=== PATIENT | male | born 1960 | race African-American/Black ===

== ENCOUNTER 2021-02-07 11:00 | Outpatient (RCR) | payer MEDICARE, SELFPAY ==
--- NOTE | 2021-01-14 15:11 | PTOPEVAL ---
PHYSICAL THERAPY EVALUATION AND PLAN OF CARE Thank you for referring William Chun to [facility].? The patient is scheduled to be seen for therapy? 2x/week for weeks. Please review, sign, date and return this plan of care SELAM. I agree with and certify that the following plan of care is medically necessary. 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 He is wearing a obey sling and hand is fisted and elbow bent to 90deg. He only wears the sling when he leaves the house (1-2x/wk). States he has full sensation of his arm including hot/cold and sharp/dull. Right arm was dominate prior to the CVA. States that he has had no rehab and is walking independently Pain Assessment Timing of Pain Assessment Timing of Pain Assessment Assessment Self Report Self Report Pain Level 0 Pain Score Pain Score 0: Self Report Upper Extremity Range of Motion Scapular/ Shoulder Range of Motion Right Shoulder Flexion - Active 30 Shoulder Abduction - Active 43 Scapular/Shoulder Range of Motion shoulder active flexion in Comments supine: 95deg Elbow/Forearm Range of Motion Right Elbow Flexion - Active 104 Elbow Flexion - Passive 134 Elbow Extension - Active -41 Elbow Extension - Passive -16 Wrist Range of Motion Right Reason Not Measured Time Limitations Wrist Range of Motion Comments not assessed at this time. May refer to occupational therapy for splinting Finger Range of Motion Right Finger Range of Motion Comments not assessed at this time; may refer to OT for splinting Upper Extremity Muscle Strength Testing Scapular/Shoulder Right Shoulder Elevation - Upper Trapezius 2 Poor Shoulder Flexion Strength 2 Poor Shoulder Extension Strength 2 Poor Shoulder Abduction Strength 2 Poor Shoulder Medial Rotation Strength 2 Poor Shoulder Lateral Rotation Strength 2 Poor Posture Posture Sitting Position Shoulder Posture (R) Rounded,(L) Forward,(R) Forward Shoulder Subluxation Degree (R) < 1 Finger wide Scapula Posture (R) Protracted,(R) Depressed
--- NOTE | 2021-02-07 11:48 | PTOPEVAL ---
PHYSICAL THERAPY DISCHARGE Thank you for referring William Chun to [facility].? Please review, sign, date and return this plan of care SELAM. I agree with and certify that the following plan of care is medically necessary. 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 He states that he wants his fingers to be doing better. His elbow and shoulder have more range that what he had. Self Report Self Report Pain Level 0 Pain Score Pain Score 0: Self Report Upper Extremity Range of Motion Scapular/ Shoulder Range of Motion Right Shoulder Flexion - Active 66 Shoulder Abduction - Active 55 Scapular/Shoulder Range of Motion shoulder active flexion in Comments supine: 95deg, passive 105deg Elbow/Forearm Range of Motion Right Elbow Flexion - Active 120 Elbow Flexion - Passive 138 Elbow Extension - Active -30 Elbow Extension - Passive -9 Wrist Range of Motion Right Reason Not Measured Time Limitations Wrist Range of Motion Comments not assessed at this time. May refer to occupational therapy for splinting General Exercise General Exercises Side Right Exercise Location arm Exercise Type Active,Active/Assistive Exercise Description -supine A/A shoulder flexion Query Text:Record Sets, Reps, with canex20 Resistance, and Position -supine active elbow flexion/ extension with canex20 -supine A/A press up to the ceiling with cane x20 Seated: -Punching forward with R UE usin L UE to increase range of motion [id number] -sitting shoulder abduction no higher than 90deg x10 -sitting maribel A/A shoulder flexion [id number] walking around the track with 2.5 lb weight on right wrist - A/A arm swing Position Against Orwell,Orwell Eliminated Exercise Comments . Rehab Teachin
== END 2021-02-08 09:54 | disposition home or self-care (01) ==
LOC: ANHPT 11:00
PROVIDERS: PCP Internal Medicine; Visit Provider Clinical Nurse Specialist
DX: I63.9 Cerebral infarction, unspecified (principal); M24.50 Contracture, unspecified joint
CPT/HCPCS: 97110; 97140; 97162

== ENCOUNTER 2021-03-13 08:30 | Outpatient (RCR) | payer MEDICARE, SELFPAY ==
--- NOTE | 2021-02-26 11:58 | OTOPEVAL ---
OCCUPATIONAL THERAPY INITIAL EVALUATION REPORT 02/26/21 Patient presents today for fabrication of splint for right hand contracture. A well fitted, custom cone splint for the right hand and wrist was fabricated today. The splint has the wrist supported in slight flexion with the fingers out of the palm. He is able to don/doff the splint. Recommend that the patient follow up with OT for 1 session next week to follow up on splint fit, comfort, and for any adjustments PRN. Thank you for referring William Chun to [facility].? The patient is scheduled to be seen for 1 OT follow up visit next week. Will assess for discharge at that time. Please review, sign, date and return this plan of care SELAM. I agree with and certify that the following plan of care is medically necessary. Referring Physician Date Referring Provider: ANOOP Steel *OT Outpatient Evaluation Start: 02/26/21 10:40 Therapy Assessment Status Assessment Status Assessment Status Evaluation Outpatient Past Medical History Past Medical History Source of Past Medical History Patient Neurological History Hx Cerebrovascular Accident (CVA) Yes: May 2019 Cardiovascular History Hx Cardiac Disorders No Significant History Evaluation Information Problem Diagnosis right hand contracture s/p CVA Pain Assessment Timing of Pain Assessment Timing of Pain Assessment Assessment Self Report Self Report Pain Level 0 Pain Score Pain Score 0: Self Report Splint/Brace/Cast Assessment Splint and Bracing Assessment Right Hand Fabrication Clinician Made Splint/Brace/Cast Comments Cone Splint Reason For Splint/Brace/Cast Minimize Deformities,Optimal Positioning Schedule As Tolerated Schedule Comments Educated patient to remove every few hours for ROM/ stretching of the fingers and to regularly inspect the skin for any pressure points/red areas. Site Condition Intact Tolerance Tolerates Well Splinting/Bracing/Casting Comments Some difficulty donning splint due to hand contracture. Patient is able to complete with some cues and extra time. Doffs splint without difficulty. Rehab Teaching Rehab Teaching Teaching Topic Rehab Teaching Topic Components Orthosis/Prosthesis As Pertains To Care of Device,Follow-up, Precautions,Safety,Technique Recipient Patient Learning Preferences Demonstration,Discussion,One- on-One Instruction,Written Barriers to Learning None Readiness to Learn
--- NOTE | 2021-03-08 11:32 | PCOTNOTE ---
Patient did not show up for scheduled appointment this date. Called patient who stated the ride service did not pick him up for therapy. Rescheduled OT for next Thu.
--- NOTE | 2021-03-13 09:21 | PCOTNOTE ---
OCCUPATIONAL THERAPY DISCHARGE NOTE 03/13/21 Patient:William Chun Date of :1960 William Chun was seen for 2 OT visits for right hand contracture. A custom fabricated orthotic (cone splint) was fitted for the patient to support the wrist in a neutral position, thumb in abduction, and the fingers into partial extension. He has been instructed in passive ROM for the elbow, forearm, and hand. He has been instructed on the importance of completing nail care to these fingers as he could be at risk for developing sores or wounds if the nail continues to push into his skin or palm. The PIPs of digis III-V are contracted into 80-100 degrees of flexion. Continued therapy does not appear to be indicated as there are bony and soft tissue changes here. It appears that ROM will only maintain the range he has. At this time he is independent with splinting and self-passive ROM for maintenance. He understands the importance of completing this daily for hygiene and to restrict further contractures. Therapy goals have been met. Thank you for referring this patient to [facility]. Please review, sign, date and return this discharge summary SELAM. I have been updated about the patient's current status and I agree with discharge from the above service at this time. Referring Physician Date Referring Provider: ANOOP Steel
== END 2021-03-14 16:45 | disposition home or self-care (01) ==
LOC: ANHOT 08:30
PROVIDERS: PCP Internal Medicine; Visit Provider Clinical Nurse Specialist
DX: M24.541 Contracture, right hand (principal)
CPT/HCPCS: 97110; 97165; L3913